=== PATIENT | male | born 1985 | race Caucasian/White ===

== ENCOUNTER 2017-02-17 08:46 | Emergency (ER) | payer OTHER ==
--- NOTE | 2017-02-17 10:46 | ED CLINICAL REPORT ---
Clinical Report - Physicians/Mid Levels [facility] [address] [place] [place] [address] 02/17/2017 8:51 Patient: BRIAN RIVERS Time Seen: 09:03; initial patient contact. Arrived- By private vehicle. HISTORY OF PRESENT ILLNESS Chief Complaint: Injury to left forearm. The injury happened just prior to arrival. Occurred at work. The patient sustained a laceration from a knife. Patient is experiencing mild pain. Patient denies injury to the head or neck. REVIEW OF SYSTEMS The patient sustained a laceration. No swelling, tingling, numbness, weakness or suspected foreign body. All systems otherwise negative, except as recorded above. PAST HISTORY The patient's dominant hand is the right. Last tetanus immunization was more than 5 years ago. Problems: no known problems. Medications: None. Allergies: No Known Drug Allergy. SOCIAL HISTORY Never smoker. Occasional alcohol use. No drug use. ADDITIONAL NOTES The nursing notes have been reviewed. PHYSICAL EXAM Vital Signs: 02/17/2017 09:03 BP: 111/82. HR: 62. RR: 16. O2 saturation: 100%. Temp: 97.7 F. Pain level now: 2/10. Have been reviewed as normal. Appearance: Alert. Oriented X3. No acute distress. Skin: Skin warm. Normal skin color. Extremities: Left forearm: subcutaneous 4.0 cm laceration located in the volar aspect of forearm. Upper extremity otherwise negative. Extremities otherwise negative. Neuro, Vascular and Tendons: Vascular status intact. Sensation intact. Motor intact. Tendon function intact. Neuro: Oriented X 3. No motor deficit. No sensory deficit. PROGRESS AND PROCEDURES Laceration Repair: Time: 10:45. Location: left forearm. Per protocol, time-out completed immediately before the procedure. Length: 5 cm. Complexity: simple (local anesthesia used and sutured). Wound depth/shape- subcutaneous. Distal neuro/vascular/tendon status normal. Local anesthesia provided using 1% lidocaine with epi. Prepped with Hibiclens. Wound explored, irrigated and examined to the base in bloodless field extensively with normal saline. Closure of skin: interrupted 4-0 Prolene (7 sutures). Post-procedure: he is stable and there are no complications. Bleeding is controlled and neuro-vascular status is intact distal to the wound. Dressing applied. Tetanus immunization given. Estimated blood loss: 3 mL. Disposition: Discharged to work in good and improved condition. Condition: good. CLINICAL IMPRESSION Single deep laceration to the left forearm.Treatment of laceration not delayed. No infection or foreign body present. INSTRUCTIONS Protect wound and keep wound area clean. Change dressing twice daily. You may wash wounds briefly, then dry. Apply bacitracin twice daily. Sutures should be removed in seven days. Do not work today. Your Current Medications: CONTINUE TAKING THE FOLLOWING MEDICATIONS: None*. Follow-up: Follow up with your doctor in seven days for suture removal. Call for an appointment. Screening today revealed the patient's blood pressure to be in the pre-hypertensive range. The patient should follow up with a primary care provider for blood pressure management. (Electronically signed by Umang Fowler Dr. 02/17/2017 16:37)
--- NOTE | 2017-02-17 10:46 | ED CLINICAL REPORT ---
Clinical Report - Physicians/Mid Levels [facility] [address] [place] [address] 02/17/2017 8:51 Patient: BRIAN RIVERS Time Seen: 09:03; initial patient contact. Arrived- By private vehicle. HISTORY OF PRESENT ILLNESS Chief Complaint: Injury to left forearm. The injury happened just prior to arrival. Occurred at work. The patient sustained a laceration from a knife. Patient is experiencing mild pain. Patient denies injury to the head or neck. REVIEW OF SYSTEMS The patient sustained a laceration. No swelling, tingling, numbness, weakness or suspected foreign body. All systems otherwise negative, except as recorded above. PAST HISTORY The patient's dominant hand is the right. Last tetanus immunization was more than 5 years ago. Problems: no known problems. Medications: None. Allergies: No Known Drug Allergy. SOCIAL HISTORY Never smoker. Occasional alcohol use. No drug use. ADDITIONAL NOTES The nursing notes have been reviewed. PHYSICAL EXAM Vital Signs: 02/17/2017 09:03 BP: 111/82. HR: 62. RR: 16. O2 saturation: 100%. Temp: 97.7 F. Pain level now: 2/10. Have been reviewed as normal. Appearance: Alert. Oriented X3. No acute distress. Skin: Skin warm. Normal skin color. Extremities: Left forearm: subcutaneous 4.0 cm laceration located in the volar aspect of forearm. Upper extremity otherwise negative. Extremities otherwise negative. Neuro, Vascular and Tendons: Vascular status intact. Sensation intact. Motor intact. Tendon function intact. Neuro: Oriented X 3. No motor deficit. No sensory deficit. PROGRESS AND PROCEDURES Laceration Repair: Time: 10:45. Location: left forearm. Per protocol, time-out completed immediately before the procedure. Length: 5 cm. Complexity: simple (local anesthesia used and sutured). Wound depth/shape- subcutaneous. Distal neuro/vascular/tendon status normal. Local anesthesia provided using 1% lidocaine with epi. Prepped with Hibiclens. Wound explored, irrigated and examined to the base in bloodless field extensively with normal saline. Closure of skin: interrupted 4-0 Prolene (7 sutures). Post-procedure: he is stable and there are no complications. Bleeding is controlled and neuro-vascular status is intact distal to the wound. Dressing applied. Tetanus immunization given. Estimated blood loss: 3 mL. Disposition: Discharged to work in good and improved condition. Condition: good. CLINICAL IMPRESSION Single deep laceration to the left forearm.Treatment of laceration not delayed. No infection or foreign body present. INSTRUCTIONS Protect wound and keep wound area clean. Change dressing twice daily. You may wash wounds briefly, then dry. Apply bacitracin twice daily. Sutures should be removed in seven days. Do not work today. Your Current Medications: CONTINUE TAKING THE FOLLOWING MEDICATIONS: None*. Follow-up: Follow up with your doctor in seven days for suture removal. Call for an appointment. Screening today revealed the patient's blood pressure to be in the pre-hypertensive range. The patient should follow up with a primary care provider for blood pressure management. (Electronically signed by Umang Fowler Dr. 02/17/2017 16:37)
--- NOTE | 2017-02-17 10:47 | ED NURSING NOTES ---
Clinical Report - Nurses [facility] [address] [place] [address] 02/17/2017 8:51 Patient: BRIAN RIVERS TRIAGE Triage time 09:03. Acuity: LEVEL 3. Chief Complaint: LACERATION. SEPSIS SCREEN: Sepsis Screen. Negative (no infection suspected/documented). --09:09 Yaneth Phipps R.N. 09:03 02/17/17. BP: 111/82. HR: 62. RR: 16. O2 saturation: 100%. Temp: 97.7 F. Pain level now: 10/17. --09:09 Yaneth Phipps R.N. Weight: 97.5 kg stated. Height/Length: 74 inches Per Patient. BMI: 27.6. --09:08 Yaneth Phipps R.N. Medications None. --09:05 Yaneth Phipps R.N. Allergies No Known Drug Allergy. --09:06 Yaneth Phipps R.N. History Primary physician (no pcp). ( Laceration to left forearm). Location of injuries: left forearm. This occurred just prior to arrival. Occurred at work. 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 Laceration is covered with a paper towel and electrical tape.). 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 PAST MEDICAL HX: Tetanus status: up-to-date. Immunizations: up-to-date. SURGERY HX: Inguinal hernia repair (many years ago). SOCIAL HX: Never smoker. Occasional alcohol use. No drug use. SELF HARM ASSESSMENT: A self harm assessment was performed. The patient answered "no" to the question "Do you have thoughts of harming or killing yourself?". FALL RISK ASSESSMENT: Fall risk assessment completed. No fall risk identified. NUTRITIONAL RISK ASSESSMENT: The nutritional risk assessment revealed no deficiencies. FUNCTIONAL ASSESSMENT: Functional assessment: no impairments noted. LEARNING NEEDS ASSESSMENT: The learning needs assessment revealed no barriers. SKIN INTEGRITY ASSESSMENT: Skin integrity risk assessment completed. No skin integrity risk identified. --09:09 Yaneth Phipps R.N. PAST MEDICAL HX: Last tetanus: (Needs tetanus). --09:17 Yaneth Phipps R.N. PAST MEDICAL HX: ( confirmed with family that he is due for a tetanus). --09:17 Yaneth Phipps R.N. PROBLEMS: no known problems. Interventions ID band on patient. To room. --09: Yaneth Phipps R.N. PHYSICAL ASSESSMENT Ambulatory to room. GENERAL / NEURO / PSYCH: Alert. Oriented X 4. Appears in no acute distress. RESPIRATORY: Respirations not labored. Breath sounds within normal limits. CVS: Normal heart rate and rhythm. ( Sensation present in left hand and fingers, cap refill < 2 sec). EXTREMITIES: Left forearm: laceration with controlled bleeding. SKIN: Skin is warm and dry. --09:10 Yaneth Phipps R.N. NURSING PROGRESS NOTES Reassurance given. Patient identifiers checked. Call light placed in reach. Bed placed in lowest position. Brakes of bed on. Patient ready for evaluation- chart flagged and ED physician notified. --09:11 Yaneth Phipps R.N. 09:29 02/17/2017 TDAP IM 0.5 mL given. (Lot#: [id number], expiration date: 01/15/2019, Field Marketing Representative: sanofi pasteur). Given in the right deltoid. Allergies verified and confirmed 5 rights. Vaccine information statement provided to the patient. --09:29 Brayan Falcon R.N. 10:30. WOUND REPAIR: Wound repair performed by ED physician. Assisted by one nurse. The wound is located on the left forearm. The wound is clean. Preparation: suture tray set-up. Procedure: wound repaired with sutures. Post-procedure: he was stable, bleeding controlled, dressing applied and wound care instructions given. Total time of assist / procedure: 15 minutes. --13:09 Yaneth Phipps R.N. DISPOSITION / DISCHARGE Condition at departure: improved. No learning barriers present. Discharge instructions provided and reviewed with the patient. Work note given. Patient verbalized understanding. Written instructions provided in Bulgarian. The patient was discharged by the physician. He was discharged home and accompanied by coworker. He left the Emergency Department ambulatory and via private vehicle. 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 --10:55 Yaneth Phipps R.N. 10:54 02/17/17. BP: 105/55. HR: 75. RR: 16. O2 saturation: 100%. Temp: 98.6 F. Pain level now: 10/17. --10:55 Yaneth Phipps R.N. Departure time: 10:56. --10:56 Yaneth Phipps R.N. Locked/Released at 02/17/2017 13:10 by Yaneth Phipps R.N.
--- NOTE | 2017-02-17 10:47 | ED ORDER SUMMARY ---
..... Patient: BRIAN RIVERS OrderSheet [facility] VisitID: [id number] [address] [place] [address] 31y, M Registration Date/Time: 02/17/2017 ORDER SHEET Weight: 97.5 kg (stated) Allergies: No Known Drug Allergy GENERAL ORDERS: MEDICATION ORDERS: Tdap IM 0.5 mL (NOW, per protocol) (09:28 02/17/2017 Earl Calabrese per protocol) (9:29 Earl Sherwood.Alex) IV FLUIDS: ORDER SHEET NOTES: [Electronically signed by Yaneth Phipps R.N. (13:10 02/17/2017)] [Electronically signed by Umang Fowler Dr. (16:37 02/17/2017)] [Electronically locked/signed by Yaneth Phipps R.N. (13:10 02/17/2017)]
--- NOTE | 2017-02-17 10:47 | ED ORDER SUMMARY ---
..... Patient: BRIAN RIVERS OrderSheet [facility] VisitID: [id number] [address] [place] [address] 31y, M Registration Date/Time: 02/17/2017 ORDER SHEET Weight: 97.5 kg (stated) Allergies: No Known Drug Allergy GENERAL ORDERS: MEDICATION ORDERS: Tdap IM 0.5 mL (NOW, per protocol) (09:28 02/17/2017 Earl Calabrese per protocol) (9:29 Earl Sherwood.Alex) IV FLUIDS: ORDER SHEET NOTES: [Electronically signed by Yaneth Phipps R.N. (13:10 02/17/2017)] [Electronically signed by Umang Fowler Dr. (16:37 02/17/2017)] [Electronically locked/signed by Yaneth Phipps R.N. (13:10 02/17/2017)]
--- NOTE | 2017-02-17 10:47 | ED NURSING NOTES ---
Clinical Report - Nurses [facility] [address] [place] [address] 02/17/2017 8:51 Patient: BRIAN RIVERS TRIAGE Triage time 09:03. Acuity: LEVEL 3. Chief Complaint: LACERATION. SEPSIS SCREEN: Sepsis Screen. Negative (no infection suspected/documented). --09:09 Yaneth Phipps R.N. 09:03 02/17/17. BP: 111/82. HR: 62. RR: 16. O2 saturation: 100%. Temp: 97.7 F. Pain level now: 10/17. --09:09 Yaneth Phipps R.N. Weight: 97.5 kg stated. Height/Length: 74 inches Per Patient. BMI: 27.6. --09:08 Yaneth Phipps R.N. Medications None. --09:05 Yaneth Phipps R.N. Allergies No Known Drug Allergy. --09:06 Yaneth Phipps R.N. History Primary physician (no pcp). ( Laceration to left forearm). Location of injuries: left forearm. This occurred just prior to arrival. Occurred at work. 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 Laceration is covered with a paper towel and electrical tape.). 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 PAST MEDICAL HX: Tetanus status: up-to-date. Immunizations: up-to-date. SURGERY HX: Inguinal hernia repair (many years ago). SOCIAL HX: Never smoker. Occasional alcohol use. No drug use. SELF HARM ASSESSMENT: A self harm assessment was performed. The patient answered "no" to the question "Do you have thoughts of harming or killing yourself?". FALL RISK ASSESSMENT: Fall risk assessment completed. No fall risk identified. NUTRITIONAL RISK ASSESSMENT: The nutritional risk assessment revealed no deficiencies. FUNCTIONAL ASSESSMENT: Functional assessment: no impairments noted. LEARNING NEEDS ASSESSMENT: The learning needs assessment revealed no barriers. SKIN INTEGRITY ASSESSMENT: Skin integrity risk assessment completed. No skin integrity risk identified. --09:09 Yaneth Phipps R.N. PAST MEDICAL HX: Last tetanus: (Needs tetanus). --09:17 Yaneth Phipps R.N. PAST MEDICAL HX: ( confirmed with family that he is due for a tetanus). --09:17 Yaneth Phipps R.N. PROBLEMS: no known problems. Interventions ID band on patient. To room. --09: Yaneth Phipps R.N. PHYSICAL ASSESSMENT Ambulatory to room. GENERAL / NEURO / PSYCH: Alert. Oriented X 4. Appears in no acute distress. RESPIRATORY: Respirations not labored. Breath sounds within normal limits. CVS: Normal heart rate and rhythm. ( Sensation present in left hand and fingers, cap refill < 2 sec). EXTREMITIES: Left forearm: laceration with controlled bleeding. SKIN: Skin is warm and dry. --09:10 Yaneth Phipps R.N. NURSING PROGRESS NOTES Reassurance given. Patient identifiers checked. Call light placed in reach. Bed placed in lowest position. Brakes of bed on. Patient ready for evaluation- chart flagged and ED physician notified. --09:11 Yaneth Phipps R.N. 09:29 02/17/2017 TDAP IM 0.5 mL given. (Lot#: [id number], expiration date: 01/15/2019, Online Content Editor: sanofi pasteur). Given in the right deltoid. Allergies verified and confirmed 5 rights. Vaccine information statement provided to the patient. --09:29 Brayan Falcon R.N. 10:30. WOUND REPAIR: Wound repair performed by ED physician. Assisted by one nurse. The wound is located on the left forearm. The wound is clean. Preparation: suture tray set-up. Procedure: wound repaired with sutures. Post-procedure: he was stable, bleeding controlled, dressing applied and wound care instructions given. Total time of assist / procedure: 15 minutes. --13:09 Yaneth Phipps R.N. DISPOSITION / DISCHARGE Condition at departure: improved. No learning barriers present. Discharge instructions provided and reviewed with the patient. Work note given. Patient verbalized understanding. Written instructions provided in Qatari. The patient was discharged by the physician. He was discharged home and accompanied by coworker. He left the Emergency Department ambulatory and via private vehicle. 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 --10:55 Yaneth Phipps R.N. 10:54 02/17/17. BP: 105/55. HR: 75. RR: 16. O2 saturation: 100%. Temp: 98.6 F. Pain level now: 10/17. --10:55 Yaneth Phipps R.N. Departure time: 10:56. --10:56 Yaneth Phipps R.N. Locked/Released at 02/17/2017 13:10 by Yaneth Phipps R.N.
--- NOTE | 2017-02-17 16:38 | ED MED RECONCILIATION SUMMARY ---
Patient: BRIAN RIVERS Medication Reconciliation Report [facility] VisitID: [id number] [address] [place] [address] 31y, M Registration Date/Time: 02/17/2017 Weight: 97.5 kg Height/Length: 74 in. BMI: 27.6 ALLERGIES: No Known Drug Allergy The patient's Home Medications are listed below: NONE. The source(s) of the original Home Medication information: Not obtained. The following Medications were given to the patient in the Emergency Department: TDAP [IM] IM 0.5 mL, administered: 02/17/2017 9:29:00 AM The following Medications were prescribed to the patient: None.
--- NOTE | 2017-02-17 16:38 | ED MAR SUMMARY ---
..... Medication Administration Record [facility] [address] [place] [address] Patient: BRIAN RIVERS Visit ID: [id number] 31y, M Weight: 97.5 kg Height/Length: 74 in BMI: 27.6 ALLERGIES: No Known Drug Allergy Given 09:29 02/17/2017 Brayan Falcon R.N. Medication Administered: TDAP [IM], Dose: 0.5 mL IM. Medication Ordered: Tdap IM 0.5 mL (NOW, per protocol).
--- NOTE | 2017-02-17 16:38 | ED MED RECONCILIATION SUMMARY ---
Patient: BRIAN RIVERS Medication Reconciliation Report [facility] VisitID: [id number] [address] [place] [address] 31y, M Registration Date/Time: 02/17/2017 Weight: 97.5 kg Height/Length: 74 in. BMI: 27.6 ALLERGIES: No Known Drug Allergy The patient's Home Medications are listed below: NONE. The source(s) of the original Home Medication information: Not obtained. The following Medications were given to the patient in the Emergency Department: TDAP [IM] IM 0.5 mL, administered: 02/17/2017 9:29:00 AM The following Medications were prescribed to the patient: None.
--- NOTE | 2017-02-17 16:38 | ED DISCHARGE INSTRUCTIONS ---
Patient: BRIAN RIVERS General Instructions [facility] VisitID: [id number] [place] [address] 31y, M Registration Date/Time: 02/17/2017 Single deep laceration to the left forearm.Treatment of laceration not delayed. No infection or foreign body present. INSTRUCTIONS Protect wound and keep wound area clean. Change dressing twice daily. You may wash wounds briefly, then dry. Apply bacitracin twice daily. Sutures should be removed in seven days. Do not work today. Your Current Medications: CONTINUE TAKING THE FOLLOWING MEDICATIONS: None*. Follow-up: Follow up with your doctor in seven days for suture removal. Call for an appointment. Screening today revealed the patient's blood pressure to be in the pre-hypertensive range. The patient should follow up with a primary care provider for blood pressure management. ADDITIONAL INFORMATION Laceration (All Closures) Alaceration is a cut through the skin. This will usually require stitches (sutures) or magda if it is deep. Minor cuts may be treated with a surgical tape closure orskin glue. Home care The following guidelines will help you care for your laceration at home: Extremity, face, or trunk wounds Keep the wound clean and dry. If a bandage was applied and it becomes wet or dirty, replace it. Otherwise, leave it in place for the first 24 hours. If stitches or magda were used, clean the wound daily. After removing the bandage, wash the area with soap and water. Use a wet cotton swab to loosen and remove any blood or crust that forms. The doctor may prescribe an antibiotic cream or ointment to prevent infection. Do not stop taking this medication until you have finished the prescribed course or the doctor tells you to stop. The doctor may also prescribe medications for pain. Follow the doctors instructions for taking these medications. You may remove the bandage to shower as usual after the first 24 hours, but do not soak the area in water (no swimming) until the stitches or magda are removed. If surgical tape was used, keep the area clean and dry. If it becomes wet, blot it dry with a towel. If skin glue was used, do not scratch, rub, or pick at the adhesive film. Do not place tape directly over the film. Do not apply liquid, ointment, or creams to the wound while the film is in place. Do not clean the wound with peroxide and do not apply ointments. Avoid activities that cause heavy sweating until the film has fallen off. Protect the wound from prolonged exposure to sunlight or tanning lamps. You may shower as usual but do not soak the wound in water (no baths or swimming). The film will fall off by itself in 510 days. Scalp wounds During the first two days, you may carefully rinse your hair in the shower to remove blood, glass or dirt particles. After two days, you may shower and shampoo your hair normally. Do not soak your scalp in the tub or go swimming until the stitches or magda have been removed. Talk with your doctor before applying any antibiotic ointment to the wound. Mouth wounds Eat soft foods to reduce pain. If the cut is inside of your mouth, clean by rinsing after each meal and at bedtime with a mixture of equal parts water and hydrogen peroxide (do not swallow!). Or, you can use a cotton swab to directly apply hydrogen peroxide onto the cut. Mouth wounds can be painful when eating. You may use an [id number]-[id number] local numbing solution for pain relief. If this is not available, you may use any numbing solution for teething babies. You may apply this directly to the sores with a cotton-tip swab or with your finger. Follow-up care Follow up with your health care provider. Most skin wounds heal within ten days. Mouth and facial wounds heal within five days. However, even with proper treatment, a wound infection may sometimes occur. Therefore, you should check the wound daily for signs of infection listed below. Stitches should be removed from the face within five days; stitches and magda should be removed from other parts of the body within 714 days. If dissolving stitches were used in the mouth, these will fall out or dissolve without the need for removal. If tape closures were used, remove them yourself if they have not fallen off after 7 days. Ifskin glue was used, the film will fall off by itself in 510 days. When to seek medical care Get prompt medical attention if any of these occur: Bleeding not controlled by direct pressure Signs of infection, including increasing pain in the wound, increasing wound redness or swelling, or pus coming from the wound Fever of 100.4F (38C) or higher, or as directed by your health care provider Stitches or magda come apart or fall out or surgical tape falls off before 7 days Wound edges re-open Bandage Change If the bandage becomes wet or dirty, replace it. Otherwise, leave it in place for the first 24 hours. Then once a day: After removing the bandage, wash the area with soap and water. Use a wet cotton swab to loosen and remove any blood or crust that forms on the wound. After cleaning, apply a thin layer of antibiotic ointment or cream. Reapply the bandage. You may shower as usual after the first 24 hours. If the bandage is on an arm or leg, cover it with a plastic bag rubber banded at both ends before showering. No tub baths or swimming until the bandage is removed and the wound healed (at least 7 days). You have been given the following additional information: Laceration, All Dressing Change Do not work today. (Electronically signed by Umang Fowler Dr. 02/17/2017 16:37)
--- NOTE | 2017-02-17 16:38 | ED MAR SUMMARY ---
..... Medication Administration Record [facility] [address] [place] [address] Patient: BRIAN RIVERS Visit ID: [id number] 31y, M Weight: 97.5 kg Height/Length: 74 in BMI: 27.6 ALLERGIES: No Known Drug Allergy Given 09:29 02/17/2017 Brayan Falcon R.N. Medication Administered: TDAP [IM], Dose: 0.5 mL IM. Medication Ordered: Tdap IM 0.5 mL (NOW, per protocol).
== END 2017-02-17 10:56 | disposition home or self-care (01) ==
LOC: ED SRH 08:46
DX: S51.812A Laceration without foreign body of left forearm, initial encounter (principal); W26.0XXA Contact with knife, initial encounter; Y93.89 Activity, other specified; Y92.89 Other specified places as the place of occurrence of the external cause; Y99.0 Civilian activity done for income or pay; Z23 Encounter for immunization